=== PATIENT | male | born 1955 | race Caucasian/White ===

== ENCOUNTER 2020-08-11 19:37 | Emergency (ER) | payer OTHER ==
[~2020-08-11] VITALS: Ht 180.3 cm; Wt 99.8 kg
[2020-08-11] MEDS ORDERED: CEPHALEXIN500 MG PO (20:41)
[2020-08-11 21:04] VITALS: BP 135/61
== END 2020-08-11 21:05 | disposition home or self-care (01) ==
LOC: M.ERS 19:37
DX: S01.111A Laceration without foreign body of right eyelid and periocular area, initial encounter (principal); I10 Essential (primary) hypertension; W17.89XA Other fall from one level to another, initial encounter; Y93.89 Activity, other specified; Y92.89 Other specified places as the place of occurrence of the external cause; Y99.8 Other external cause status

== ENCOUNTER 2020-08-19 11:51 | Emergency (ER) | payer OTHER ==
[~2020-08-19] VITALS: Ht 180.3 cm; Wt 99.8 kg
[~2020-08-19 11:51] MED LIST: CEPHALEXIN500 MG PO
[2020-08-19 12:10] VITALS: BP 130/68
== END 2020-08-19 12:12 | disposition home or self-care (01) ==
LOC: M.ERS 11:51
DX: S01.111D Laceration without foreign body of right eyelid and periocular area, subsequent encounter (principal); I10 Essential (primary) hypertension; E11.9 Type 2 diabetes mellitus without complications; Z86.14 Personal history of Methicillin resistant Staphylococcus aureus infection; X58.XXXD Exposure to other specified factors, subsequent encounter